=== PATIENT | female | born 1975 | race American Indian/Alaskan Native ===

== ENCOUNTER 2019-11-09 08:45 | Emergency (ER) | payer MEDICAID ==
[2019-11-09] MEDS ORDERED: ACETAMINOPHEN 325 MG TAB PO ONE (09:06)
--- NOTE | 2019-11-09 09:39 | XRay Report ---
CHEST 2 VIEWS INDICATION: Chest pain/COUGH. COMPARISON: None. FINDINGS: Support devices: None. Heart: Within normal limits. Lungs/Pleura: No acute air space or interstitial disease. No significant pleural effusion. IMPRESSION: No acute findings. Signer Name: Sarabjit Conrad MD Signed: 11/09/2019 9:34 AM Workstation Name: [id number]
[2019-11-09 14:08] VITALS: BP 165/91
== END 2019-11-09 14:16 | disposition left against medical advice (07) ==
LOC: ED 08:45
DX: R05 Cough (principal); Z53.21 Procedure and treatment not carried out due to patient leaving prior to being seen by health care provider
CPT/HCPCS: 71046